=== PATIENT | male | born 1970 | race Caucasian/White ===

== ENCOUNTER → 2018-10-14 | Outpatient (CLI) | payer BC ==
[~2018-10-14] MED LIST: ASPIRIN81 MG PO; GABAPENTIN300 MG PO; LIPITOR20 MG PO; LISINOPRIL10 MG PO; MUCINEX DM ER1 EACH PO; PANTOPRAZOLE SO40 MG PO; SINGULAIR10 MG PO; TIZANIDINE HCL4 M1 PO; XIGDUO XR PO; XOLAIR150 MG SQ; ZYRTEC10 MG PO; [UNRECOGNIZED DRUG - OTHER] SQ
[2018-10-14 11:19] LABS: BASOPHILS # (AUTO) 0.1 (0.0-0.1); BASOPHILS % 0.6 % (0.0-1.0); EOSINOPHILS # (AUTO) 0.1 (0.0-0.4); EOSINOPHILS % 0.9 % (0.0-6.0); HEMOGLOBIN 17.1 g/dL (14.0-18.0); LYMPHOCYTES # (AUTO) 2.9 (1.0-3.2); LYMPHOCYTES % 24.3 % (18.0-39.1); MEAN CORPUSCULAR HEMOGLOBIN 30.3 pg (28-32); MEAN CORPUSCULAR HGB CONC 34.2 g/dL (31-35); MEAN CORPUSCULAR VOLUME 88.5 fL (81-99); MONOCYTES # (AUTO) 0.6 (0.2-0.8); MONOCYTES % 4.9 % (4.4-11.3); NEUTROPHILS # (AUTO) 8.3 (2.1-6.9); PLATELET COUNT 393 x10e3/uL (140-360); RED BLOOD COUNT 5.65 x10e6/uL (4.3-5.7); RED CELL DISTRIBUTION WIDTH 13.5 % (11.7-14.4)
[2018-10-14 11:34] LABS: ALANINE AMINOTRANSFERASE 26 IU/L (0-55); ALBUMIN 4.2 g/dL (3.5-5.0); ALBUMIN/GLOBULIN RATIO 1.1 (0.8-2.0); ALKALINE PHOSPHATASE 68 IU/L (40-150); ANION GAP 14.8 mmol/L (8-16); BLOOD UREA NITROGEN 12 mg/dL (7-26); BUN/CREATININE RATIO 13 (6-25); CARBON DIOXIDE 25 mmol/L (22-29); CHLORIDE 101 mmol/L (98-107); CHOL/HDL RATIO 5.7 (3.9-4.7); CHOLESTEROL 188 MD/DL (0-199); EST GLOMERULAR FILTRATION RATE > 60 ML/MIN (60-); GLUCOSE 85 mg/dL (74-118); HDL CHOLESTEROL 33 MG/DL (40-60); LDL CHOLESTEROL 126 MG/DL (60-130); POTASSIUM 3.8 mmol/L (3.5-5.1); SODIUM 137 mmol/L (136-145); TRIGLYCERIDES 145 MG/DL (0-149)
== END ==
LOC: LAB 10:35
PROVIDERS: ATTEND Family Medicine
DX: E11.65 Type 2 diabetes mellitus with hyperglycemia (principal); E78.2 Mixed hyperlipidemia; M54.5 Low back pain; I10 Essential (primary) hypertension; J30.89 Other allergic rhinitis; K21.0 Gastro-esophageal reflux disease with esophagitis
CPT/HCPCS: 36415; 80053; 80061; 83036; 84152; 85025

== ENCOUNTER → 2018-11-04 | Day surgery (SDC) | payer BC ==
[~2018-11-04] MED LIST changes: +FENTANYL CITRATE/PF 100MCG/2 ML INJ ONE; +METOCLOPRAMIDE HCL 10 MG/2ML VIAL ONE; +MIDAZOLAM HCL 2 MG/2 ML VIAL ONE; +PROPOFOL IV EMULSION 10 MG/ML 20 ML VIAL ONE
--- OUTSIDE RECORDS SUMMARY | 2018-11-04 10:08 | XMS REPORT ---
Author Author Andrzej Zavala Organization [employer] Address Unknown Phone Unavailable Care Team Providers Care Electric Mule Driver Name Role Phone Andrzej Zavala CP Unavailable Allergies No Known Allergies Problems Problem Type Condition Code Onset Dates Condition Status Problem Other specified disorders of Eustachian tube, bilateral H69.83 Active Problem Tinnitus, bilateral H93.13 Active Problem Allergic rhinitis, seasonal J30.2 Active Problem Deviated nasal septum J34.2 Active Problem Allergic rhinitis due to pollen J30.1 Active Problem Nasal Airway Obstruction R0 Active Problem Sinusitis - Chronic J32.8 Active Problem Hearing loss, Perceived- Bilateral H93.293 Active Problem Hypertrophy of nasal turbinates J34.3 Active Medications No Known Medications Results No Known Results Summary Purpose eClinicalWorks Submission
--- OUTSIDE RECORDS SUMMARY | 2018-11-04 10:08 | XMS REPORT | Encounter Summary ---
Author Organization Unknown Address [address] [place] [address] Phone [phone] Reason for Visit Medical Complaint Instructions 1. Diabetes mellitus Discussion Note Follow up with PCP Patient educational handouts: No information available. Plan of Care Reminders Provider Appointments None recorded. Lab None recorded. Referral None recorded. Procedures None recorded. Surgeries None recorded. Imaging None recorded. Medications Name Start Date acetaminophen 300 mg-codeine 30 mg tablet amoxicillin 875 mg-potassium clavulanate 125 mg tablet atorvastatin 20 mg tablet azelastine 137 mcg (0.1 %) nasal spray aerosol azithromycin 250 mg tablet cephalexin 500 mg capsule Clarinex-D 12 HOUR 2.5 mg-120 mg tablet,extended release clarithromycin 500 mg tablet diazepam 5 mg tablet epinephrine 0.3 mg/0.3 mL injection, auto-injector hydrocodone 5 mg-acetaminophen 300 mg tablet losartan 50 mg tablet methylprednisolone 4 mg tablets in a dose pack montelukast 10 mg tablet mupirocin 2 % topical ointment pantoprazole 40 mg tablet,delayed release terbinafine HCl 250 mg tablet tramadol 50 mg tablet Trulicity 1.5 mg/0.5 mL subcutaneous pen injector INJECT 1.5 MG WEEKLY Xigduo XR 5 mg-500 mg tablet,extended release Medications Administered None recorded. Vitals Height Weight BMI Blood Pressure 5 ft 11 in 201 lbs 28 kg/m2 126/70 mm[Hg] Lab Results None recorded. Allergies Code Code System Name Reaction Severity Status Onset 7052 RxNorm Morphine Active Problems None recorded. Procedures None recorded. Vaccine List None recorded. Social History Smoking Status Never Smoker Past Encounters 12/04/2016 Diabetes Mellitus Trina Bhandari PA-C: [address], [place] [address], Ph. History of Present Illness One Time Refill Reported By: Patient HPI: Context: Patient here for medication refill, Why does patient require med refills at [facility]? (double click for free text answer). Quality: What medical problems does patient require refills for? (double click for free text), What medications does patient require refills for? (double click for free text). Duration: How long has patient been taking above medications? > 1 year. Onset/Timing: How long has patient been out of medication? < 1 week Review of Systems:ROS as noted in the HPI Review of Systems Basic Reported By: Patient Physical Exam Adult Basic, Adult Male Complete Reported By: Patient Constitutional: General Appearance: healthy-appearing, well-nourished, well-developed. Level of Distress: NAD. Ambulation: ambulating normally Lungs: Respiratory effort: no dyspnea, no tachypnea, no use of accessory muscles, no intercostal retractions. Auscultation: breath sounds normal, good air movement Cardiovascular: Heart Auscultation: RRR, no murmurs. Pulses including femoral / pedal: normal throughout
--- OUTSIDE RECORDS SUMMARY | 2018-11-04 10:08 | XMS REPORT | Continuity of Care Document ---
Author Author [employer] Organization [employer] Address Unknown Phone Unavailable Care Team Providers Care Field Technical Specialist Name Role Phone [employer] Information Exchange Unavailable Unavailable Problems Problem Status Onset Date Classification Date Reported Comments Source Diabetes mellitus 12/04/2016 Diagnosis 12/04/2016 [facility] Medications Medication Details Route Status Patient Instructions Ordering Provider Order Date Source Acetaminophen 300 MG / Codeine Phosphate 30 MG Oral Tablet acetaminophen 300 mg-codeine 30 mg tablet Active [facility] Amoxicillin 875 MG / Clavulanate 125 MG Oral Tablet amoxicillin 875 mg-potassium clavulanate 125 mg tablet Active [facility] atorvastatin 20 MG Oral Tablet atorvastatin 20 mg tablet Active [facility] Azelastine hydrochloride 0.137 MG/ACTUAT Metered Dose Nasal [place] azelastine 137 mcg (0.1 %) nasal spray aerosol Active [facility] Azithromycin 250 MG Oral Tablet azithromycin 250 mg tablet Active [facility] Cephalexin 500 MG Oral Capsule cephalexin 500 mg capsule Active [facility] 12 HR desloratadine 2.5 MG / Pseudoephedrine sulfate 120 MG Extended Release Oral Tablet [Clarinex-D] Clarinex-D 12 HOUR 2.5 mg-120 mg tablet,extended release Active [facility] Clarithromycin 500 MG Oral Tablet clarithromycin 500 mg tablet Active [facility] Diazepam 5 MG Oral Tablet diazepam 5 mg tablet Active [facility] [id number] 0.3 ML Epinephrine 1 MG/ML Auto-Injector epinephrine 0.3 mg/0.3 mL injection, auto-injector Active [facility] Acetaminophen 300 MG / Hydrocodone Bitartrate 5 MG Oral Tablet hydrocodone 5 mg-acetaminophen 300 mg tablet Active [facility] Losartan Potassium 50 MG Oral Tablet losartan 50 mg tablet Active [facility] methylprednisolone 4 mg tablets in a dose pack methylprednisolone 4 mg tablets in a dose pack Active [facility] montelukast 10 MG Oral Tablet montelukast 10 mg tablet Active [facility] Mupirocin 0.02 MG/MG Topical Ointment mupirocin 2 % topical ointment Active [facility] pantoprazole 40 MG Delayed Release Oral Tablet pantoprazole 40 mg tablet,delayed release Active [facility] terbinafine 250 MG Oral Tablet terbinafine HCl 250 mg tablet Active [facility] tramadol hydrochloride 50 MG Oral Tablet tramadol 50 mg tablet Active [facility] 0.5 ML dulaglutide 3 MG/ML Auto-Injector [Trulicity] Trulicity 1.5 mg/0.5 mL subcutaneous pen injector INJECT 1.5 MG WEEKLY Active [facility] 24 HR dapagliflozin 5 MG / Metformin hydrochloride 500 MG Extended Release Oral Tablet [Xigduo] Xigduo XR 5 mg-500 mg tablet,extended release Active [facility] Allergies, Adverse Reactions, Alerts Substance Category Reaction Severity Reaction type Status Date Reported Comments Source Morphine Allergy to substance 12/04/2016 [facility] Immunizations No Data Provided for This Section Results No Data Provided for This Section Pathology Reports No Data Provided for This Section Diagnostic Reports No Data Provided for This Section Consultation Notes No Data Provided for This Section Discharge Summaries No Data Provided for This Section History and Physicals No Data Provided for This Section Vital Signs Vital Sign Value Date Comments Source Diastolic (mm Hg) 70 12/04/2016 [facility] Height 71 12/04/2016 [facility] Systolic (mm Hg) 126 12/04/2016 [facility] Weight 201 12/04/2016 [facility] Encounters Location Location Details Encounter Type Encounter Number Reason For Visit Attending Provider ADM Date DC Date Status Source Outpatient [id number] RIANNA SAMANIEGO 12/01/2014 Active [facility] - [id number] ChowC: [address], [place] [address], Ph. [id number] Trina Bhandari 12/04/2016 [facility] Procedures No Data Provided for This Section Assessment and Plan No Data Provided for This Section Plan of Care No Data Provided for This Section Social History Social History Date Source Smoking Status Never Smoker 12/04/2016 [facility] Family History No Data Provided for This Section Advance Directives No Data Provided for This Section Functional Status No Data Provided for This Section
--- OUTSIDE RECORDS SUMMARY | 2018-11-04 10:08 | XMS REPORT ---
Author Author Andrzej Zavala Organization [employer] Address Unknown Phone Unavailable Care Team Providers Care Test Developer Name Role Phone Andrzej Zavala CP Unavailable Allergies No Known Allergies Problems Problem Type Condition Code Onset Dates Condition Status Assessment Allergic rhinitis due to pollen J30.1 Active Problem Other specified disorders of Eustachian tube, [...]
--- OUTSIDE RECORDS SUMMARY | 2018-11-04 10:08 | XMS REPORT ---
Author Author Andrzej Zavala [facility] eClinicalWorks Address Unknown Phone Unavailable Care Team Providers Care Molecular Biologist Name Role Phone Andrzej Zavala CP Unavailable Allergies, Adverse Reactions, Alerts Substance Reaction Event Type morphine Info Not Available Drug Allergy Problems Problem Type Condition Code Onset Dates Condition Status Assessment Nasal airway obstruction J34.89 Active Problem Other specified disorders of Eustachian tube, bilateral H69.83 Active Problem Tinnitus, bilateral H93.13 Active Assessment Hypertrophy of nasal turbinates J34.3 Active Assessment Sinusitis - Chronic J32.8 Active Problem Allergic rhinitis, seasonal J30.2 Active Problem Deviated nasal septum J34.2 Active Problem Allergic rhinitis due to pollen J30.1 Active Problem Nasal Airway Obstruction R0 Active Problem Sinusitis - Chronic J32.8 Active Problem Hearing loss, Perceived- Bilateral H93.293 Active Problem Hypertrophy of nasal turbinates J34.3 Active Medications Medication Code System Code Instructions Start Date End Date Status Dosage Dymista [facility] 77090214465 137-50 MCG/ACT Nasally Twice a day Jan 11, 2017 Active 1 puff in each nostril Benadryl [facility] 0 Active not defined Xigduo XR [facility] [address]-46 Active not defined EpiPen 2-Yasmani [facility] 78052684160 0.3 MG/0.3ML Injection Nov 07, 2016 Active as directed Clarinex-D 12 Hour [facility] 26122466769 2.5-120 MG Orally every 12 hrs Nov 07, 2016 Active 1 tablet Tylenol #3 [facility] 24872443809 300-30 MG Orally every 6 hrs as needed May 20, 2017 Active 1-2 tablets Neurontin [facility] 02107810367 100 MG Orally Three times a day Active 1 capsule Protonix [facility] 19837184292 40 MG Orally Once a day Active 1 tablet Clarinex-D 12 Hour [facility] 39208706151 2.5-120 MG Orally every 12 hrs Active 1 tablet Lamisil [facility] [address]-60 Active not defined Augmentin [facility] 66561242605 875-125 MG Orally every 12 hrs May 20, 2017 May 30, 2017 Active 1 tablet Lipitor [facility] 18197290250 20 MG Orally Once a day Active 1 tablet Flonase [facility] 26050810621 50 MCG/ACT Nasally Once a day May 01, 2016 Active 2 sprays in each nostril Trulicity [facility] 08490836785 0.75 MG/0.5ML Subcutaneous Active 0.5 ml Results No Known Results Summary Purpose eClinicalWorks Submission
--- OUTSIDE RECORDS SUMMARY | 2018-11-04 10:08 | XMS REPORT | Clinical Summary ---
Author Author JENNIFER HUYA [facility] InternationalSt[facility] / [facility] Organization [facility] Address Unknown Phone Unavailable Care Team Providers Care Electrician Front Name Role Phone Natty Lucas PCP Allergies Comments Active Allergy Reactions Severity Noted Date "Became violent" Morphine 05/20/2017 Medications End Date Status Medication Sig Dispensed Refills Start Date Active desloratadine-pseudoephed Take 1 tablet 0 rine (CLARINEX-D 12 HOUR) by mouth 2 2.5-120 mg per tablet (two) times daily. Active atorvastatin (LIPITOR) 20 Take 20 mg by 0 MG tablet mouth daily. Active pantoprazole (PROTONIX) Take 40 mg by 0 40 MG tablet mouth daily. Active dapagliflozin-metformin Take by mouth 0 (XIGDUO XR) 5-500 mg per daily. ER tablet Active dulaglutide (TRULICITY) Inject 1.5 mg 0 1.5 mg/0.5 mL PnIj subcutaneousl y every 7 days. Active predniSONE (DELTASONE) 10 Take 10 mg by 0 MG tablet mouth daily. Active diphenhydrAMINE Take 25 mg by 0 (BENADRYL) 25 mg tablet mouth as needed for Sleep. Active Problems Not on file Social History Date Tobacco Use Types Packs/Day Years Used Quit: 05/20/2012 Former Smoker Smokeless Tobacco: Never Used Alcohol Use Drinks/Week oz/Week Comments Yes 2 Cans of 2.4 beer 2 Shots of liquor Sex Assigned at Date Recorded Not on file Industry Job Start Date Occupation Not on file Not on file Not on file Travel End Travel History Travel Start No recent travel history available. Last Filed Vital Signs Not on file Plan of Treatment Not on file Results Not on fileafter 11/03/2017 Insurance Payer Benefit Subscriber ID Type Phone Address Plan / Group [employer] - MGD CARE CIGNA xxxxxxxxxxx HMO/POS HMO/POS/OP EN ACCESS
--- OUTSIDE RECORDS SUMMARY | 2018-11-04 10:09 | XMS REPORT ---
Author Author Andrzej Zavala [facility] eClinicalWorks Address Unknown Phone Unavailable Care Team Providers Care Senior Software Tester Name Role Phone Andrzej Zavala CP Unavailable Allergies, Adverse Reactions, Alerts Substance Reaction Event Type morphine Info Not Available Drug Allergy Problems Problem Type Condition Code Onset Dates Condition Status Problem Tinnitus, bilateral H93.13 Active Problem Sinusitis - Chronic J32.8 Active Problem Other specified disorders of Eustachian tube, bilateral H69.83 Active Assessment Epistaxis R04.0 Active Assessment Sinusitis - Chronic J32.8 Active Problem Allergic rhinitis due to pollen J30.1 Active Problem Allergic rhinitis, seasonal J30.2 Active Problem Epistaxis R04.0 Active Problem Hypertrophy of nasal turbinates J34.3 Active Problem Nasal Airway Obstruction R0 Active Problem Deviated nasal septum J34.2 Active Problem Hearing loss, Perceived- Bilateral H93.293 Active Medications Medication Code System Code Instructions Start Date End Date Status Dosage Clarinex-D 12 Hour [facility] 61073795272 2.5-120 MG Orally every 12 hrs Nov 07, 2016 Active 1 tablet Dymista [facility] 61379281560 137-50 MCG/ACT Nasally Twice a day Jan 11, 2017 Active 1 puff in each nostril Lamisil [facility] [address]-81 Active not defined Protonix [facility] 57867855529 40 MG Orally Once a day Active 1 tablet Neurontin [facility] 60903642291 100 MG Orally Three times a day Active 1 capsule EpiPen 2-Yasmani [facility] 24998786101 0.3 MG/0.3ML Injection Nov 07, 2016 Active as directed Flonase ND 16869962821 50 MCG/ACT Nasally Once a day May 01, 2016 Active 2 sprays in each nostril Xigduo XR [facility] [address]-23 Active not defined Trulicity [facility] 61914339629 0.75 MG/0.5ML Subcutaneous Active 0.5 ml Clarinex-D 12 Hour ND 08421767395 2.5-120 MG Orally every 12 hrs Active 1 tablet Benadryl NDC 0 Active not defined Lipitor [facility] 60214824871 20 MG Orally Once a day Active 1 tablet Results No Known Results Summary Purpose eClinicalWorks Submission
--- OUTSIDE RECORDS SUMMARY | 2018-11-04 10:09 | XMS REPORT ---
Author Author Andrzej Zavala Organization e[employer]Works Address Unknown Phone Unavailable Care Team Providers Care Middle School Counselor Name Role Phone Andrzej Zavala CP Unavailable [...] Instructions Start Date End Date Status Dosage Augmentin [facility] 22750401693 875-125 MG Orally every 12 hrs May 24, 2017 June 03, 2017 Active 1 tablet Tylenol #3 [facility] 01694203594 300-30 MG Orally every 6 hrs as needed May 24, 2017 June 03, 2017 Active 1-2 tablets Results No Known Results Summary Purpose eClinicalWorks Submission
--- OUTSIDE RECORDS SUMMARY | 2018-11-04 10:09 | XMS REPORT | Summary of Care ---
Author Author Miguel Angel AGUIRRE, Sivan Balbuena Unknown Address [facility] Phone Unavailable Care Team Providers Care Animal Nutrition Teacher Name Role Phone BEBA P.A., PETER Unavailable Unavailable RAMAKRISHNA Ariza, MARTHA Unavailable Unavailable SARITA Ariza, MAGNUSED Unavailable Unavailable SARITA Ariza, MIKEA Unavailable Unavailable RAMAKRISHNA COLLIER, MARTHA S Unavailable Unavailable SARITA COLLIER, OLEG CHAMBERLAIN Unavailable Unavailable APURVA COLLIER [place], SB FAIR Unavailable Unavailable BEBA KENNEDY, PETER Unavailable Unavailable Unavailable Unavailable Functional Status Name Dates Details Functional status health issues are not documented Status: Name Dates Details Cognitive status health issues are not documented Status: Problems Name Dates Details Need for influenza vaccination (V04.81, Z23) Status: Active Encounter to establish care (V65.8, Z76.89) Status: Active Elevated WBC count (288.60, D72.829) Status: Active Allergic rhinitis due to allergen (477.9, J30.9) Status: Active 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, 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 Facet joint disease of lumbosacral region (721.3, M47.817) Status: Active Chronic bilateral thoracic back pain (724.1, M54.6) Status: Active Thoracic facet syndrome (724.8, M47.814) Status: Active Abnormal finding on thyroid function test (794.5, R94.6) Status: Active 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, 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 Radicular pain of thoracic region (724.4, M54.14) Status: Active Cervical spondylolysis (756.19, M43.02) Status: Active Cervical radicular pain (723.4, M54.12) Status: Active 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, 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) Status: Active Acute URI (465.9, J06.9) Status: Active Diabetes mellitus type 2, controlled (250.00, E11.9) Status: Active Benign essential hypertension (401.1, I10) Status: Active Hyperlipidemia (272.4, E78.5) Status: Active Heartburn (787.1, R12) Status: Active Sacroiliac joint dysfunction of both sides (724.6, M53.3) Status: Active Lumbar radicular pain (724.4, M54.16) Status: Active Myofacial muscle pain (729.1, M79.1) Status: Active Facet arthritis of lumbosacral region (721.3, M47.817) Status: Active Lumbar spondylosis (721.3, M47.816) Status: Active Cervical facet syndrome (723.8, M47.812) Status: Active Myofascial pain syndrome (729.1, M79.18) Status: Active Medications Name Dates Details Atorvastatin Calcium 40 MG Oral Tablet TAKE 1 TABLET DAILY Quantity: 90 YODER P.A., PETER * Start : 28-Jan-2018 Active Pantoprazole Sodium 40 MG Oral Tablet Delayed Release TAKE 1 TABLET DAILY * Quantity: 90 Refills: 1 YODER P.A., PETER * Start : 02-Jul-2017 Active Xigduo XR 5-500 MG Oral Tablet Extended Release 24 Hour TAKE 1 TABLET BY MOUTH EVERY DAY * Quantity: 90 Refills: 1 MARTHA DURBIN M.D. * Start : 02-Jul-2017 Active Trulicity 1.5 MG/0.5ML Subcutaneous Solution Pen-injector INJECT 1 SYRINGE SUBCUTANEOUSLY WEEKLY * Quantity: 6 Refills: 0 YODER P.A., PETER * Start : 01-Jul-2018 Active Lisinopril 20 MG Oral Tablet TAKE ONE TABLET BY MOUTH ONCE DAILY DIRECTED. DUE FOR [address] EASE SCHEDULE APPOINTMENT FOR OFFICE VISIT. * Quantity: 30 Refills: 0 YODER P.A., PETER * Start : 09-Sep-2017 Active tiZANidine HCl - 4 MG Oral Tablet TAKE 1 TABLET AT BEDTIME. * Quantity: 90 Refills: 2 OLEG STEIN M.D. * Start : 19-Jun-2017 Active Capsaicin 0.025 % External Cream APPLY GENTLY TO AFFECTED AREA 2-4 TIMES DAILY. * Quantity: 1 Refills: 3 SARITA ArizaOLEG * Start : 19-Jun-2017 Active 60 GM Tube Aspirin 81 MG Oral Tablet Delayed Release TAKE 1 TABLET DAILY DIRECTEDNEEDS OFFICE VISIT * Quantity: 30 Refills: 0 RAAMKRISHNA ArizaMARTHA * Start : 28-Jan-2018 Active Singulair 10 MG Oral Tablet * Refills: 0 Active Multivitamins CAPS * Refills: 0 Active Zyrtec TABS * Refills: 0 Active Gabapentin 600 MG Oral Tablet TAKE 1 TABLET BY MOUTH THREE TIMES DAILY * Quantity: 90 Refills: 0 SARITA ArizaMAURO * Start : 10-Jan-2018 Active Allergies and Adverse Reactions Name Dates Details morphine (Allergy) Status: Active Past Medical History Name Dates Details History of high cholesterol (V12.29, Z86.39) Status: Resolved History of type 2 diabetes mellitus (V12.29, Z86.39) Status: Resolved Procedures Procedure Dates Details History of Vasectomy Completed History of Kyphoplasty Completed History of Cervical vertebral fusion Completed History of Uvuloplasty Completed History of Turbinectomy Completed History of Nasal septoplasty Completed Immunization Name Dates Details Fluzone Quadrivalent 0.5 ML Intramuscular Suspension Lot #: [id number] on: 31-Dec-2016 Family History Name Dates Details Family history of hypothyroidism (V18.19, Z83.49) Status: Active Name Dates Details Family history of hypothyroidism (V18.19, Z83.49) Status: Active Name Dates Details Family history of Coronary aneurysm (414.11, I25.41) Status: Active Family history of essential hypertension (V17.49, Z82.49) Status: Active Family history of Lung transplant status, bilateral (V42.6, Z94.2) Status: Active Social History Name Dates Details - Status: Name Dates Details Former smoker Vital Signs Date Test Result Details No Known Vitals to report Results Date Description Value Details Results not documented Plan of Care Name Dates Details Planned Observations Planned Goals not documented Interventions Provided Medication Changes* Lisinopril 20 MG Oral Tablet - Renew Instructions Name Dates Details Instructions not documented Encounters Appointment; JULIA GOMES NP Encounter Diagnosis: Problem not documented On: 31-Dec-2016 14:00 Appointment; MARIANNE RAZO M.D. Encounter Diagnosis: Problem not documented On: 26-Mar-2017 18:15 Appointment; MARTHA DURBIN M.D. Encounter Diagnosis: Problem not documented On: 17-Jun-2017 10:15 Appointment; OLEG STEIN M.D. Encounter Diagnosis: Problem not documented On: 19-Jun-2017 9:30 Appointment; MARTHA DURBIN M.D. Encounter Diagnosis: Problem not documented On: 23-Jul-2017 8:45 Appointment; OLEG STEIN M.D. Encounter Diagnosis: Problem not documented On: 19-Aug-2017 9:30 Appointment; OLEG STEIN M.D. Encounter Diagnosis: Problem not documented On: 22-Oct-2017 15:15 Appointment; OLEG STEIN M.D. Encounter Diagnosis: Problem not documented On: 25-Nov-2017 8:00 Appointment; JARRET CLAROS M.D. Encounter Diagnosis: Problem not documented On: 03-Dec-2017 14:30 Appointment; OLEG STEIN M.D. Encounter Diagnosis: Problem not documented On: 11-Dec-2017 15:00 Appointment; OLEG STEIN M.D. Encounter Diagnosis: Problem not documented On: 31-Dec-2017 9:45 Appointment; MARTHA DURBIN M.D. Encounter Diagnosis: Problem not documented On: 15-Jan-2018 8:00 Appointment; OLEG STEIN M.D. Encounter Diagnosis: Problem not documented On: 16-Jan-2018 10:30 Appointment; OLEG STEIN M.D. Encounter Diagnosis: Problem not documented On: 03-Feb-2018 8:00 Appointment; PETER YODER P.A. Encounter Diagnosis: Problem not documented On: 26-Mar-2018 7:45 Appointment; PETER YODER P.A. Encounter Diagnosis: Problem not documented On: 07-Apr-2018 7:45 Appointment; OLEG STEIN M.D. Encounter Diagnosis: Problem not documented On: 21-Apr-2018 8:30 Appointment; OLEG STEIN M.D. Encounter Diagnosis: Problem not documented On: 20-May-2018 8:15 Appointment; IRA SEARS M.D. Encounter Diagnosis: Problem not documented On: 09-Jul-2018 8:30 Appointment; OLEG STEIN M.D. Encounter Diagnosis: Problem not documented On: 24-Jul-2018 13:15 Appointment; IRA SEARS M.D. Encounter Diagnosis: Problem not documented On: 24-Jul-2018 13:15
--- OUTSIDE RECORDS SUMMARY | 2018-11-04 10:09 | XMS REPORT ---
Author Author Andrzej Zavala Organization [employer] Address Unknown Phone Unavailable Care Team Providers Care Sports Physiotherapist Name Role Phone Andrzej Zavala CP Unavailable Allergies No Known Allergies Problems Problem Type Condition Code Onset Dates Condition Status Problem Other specified disorders of Eustachian tube, bilateral H69.83 Active Problem Nasal Airway Obstruction R0 Active Problem Sinusitis - Chronic J32.8 Active Assessment Allergic rhinitis due to pollen J30.1 Active Problem Tinnitus, bilateral H93.13 Active Problem Epistaxis R04.0 Active Problem Allergic rhinitis due to pollen J30.1 Active Problem Allergic rhinitis J30.9 Active Problem Hearing loss, Perceived- Bilateral H93.293 Active Problem Hypertrophy of nasal turbinates J34.3 Active Problem Allergic rhinitis, seasonal J30.2 Active Problem Deviated nasal septum J34.2 Active Medications No Known Medications Results No Known Results Summary Purpose eClinicalWorks Submission
--- OUTSIDE RECORDS SUMMARY | 2018-11-04 10:09 | XMS REPORT ---
Author Author Andrzej Zavala [facility] e[employer]Works Address Unknown Phone Unavailable Care Team Providers Care Bait Maker Name Role Phone Andrzej Zavala CP Unavailable Allergies, Adverse Reactions, Alerts Substance Reaction Event Type morphine Info Not Available Drug Allergy Problems Problem Type Condition Code Onset Dates Condition Status Assessment Sinusitis - Chronic J32.8 Active Problem Other [...] Instructions Start Date End Date Status Dosage Tylenol #3 [facility] 09511595808 300-30 MG Orally every 6 hrs as needed May 24, 2017 June 03, 2017 Active 1-2 tablets Tylenol #3 NDC 34143864206 300-30 MG Orally every 6 hrs as needed May 20, 2017 Active 1-2 tablets Xigduo XR [facility] [address]-96 Active not defined Lipitor ND 36141558917 20 MG Orally Once a day Active 1 tablet Trulicity [facility] 31069773080 0.75 MG/0.5ML Subcutaneous Active 0.5 ml Augmentin [facility] 83135120735 875-125 MG Orally every 12 hrs May 24, 2017 June 03, 2017 Active 1 tablet Lamisil [facility] [address]-89 Active not defined Neurontin ND 65808102767 100 MG Orally Three times a day Active 1 capsule Flonase ND 21324959816 50 MCG/ACT Nasally Once a day May 01, 2016 Active 2 sprays in each nostril Dymista [facility] 83818946984 137-50 MCG/ACT Nasally Twice a day Jan 11, 2017 Active 1 puff in each nostril Augmentin [facility] 23126669353 875-125 MG Orally every 12 hrs May 20, 2017 May 30, 2017 Active 1 tablet Protonix [facility] 64961956726 40 MG Orally Once a day Active 1 tablet Benadryl [facility] 0 Active not defined EpiPen 2-Yasmani [facility] 87086169439 0.3 MG/0.3ML Injection Nov 07, 2016 Active as directed Clarinex-D 12 Hour [facility] 73732873424 2.5-120 MG Orally every 12 hrs Nov 07, 2016 Active 1 tablet Clarinex-D 12 Hour [facility] 30579119138 2.5-120 MG Orally every 12 hrs Active 1 tablet Results No Known Results Summary Purpose eClinicalWorks Submission
--- OUTSIDE RECORDS SUMMARY | 2018-11-04 10:09 | XMS REPORT ---
Author Author Andrzej Zavala Organization [employer] Address Unknown Phone Unavailable Care Team Providers Care Dairy Worker Name Role Phone Andrzej Zavala CP Unavailable Allergies No Known Allergies Problems Problem Type Condition Code Onset Dates Condition Status Problem Tinnitus, bilateral H93.13 Active Problem Sinusitis - Chronic J32.8 Active Problem Other specified disorders of Eustachian tube, bilateral H69.83 Active Problem Allergic rhinitis due to pollen J30.1 Active Problem Allergic rhinitis, seasonal J30.2 Active Problem Epistaxis R04.0 Active Problem Hypertrophy of nasal turbinates J34.3 Active Problem Nasal Airway Obstruction R0 Active Problem Deviated nasal septum J34.2 Active Problem Hearing loss, Perceived- Bilateral H93.293 Active Medications Medication Code System Code Instructions Start Date End Date Status Dosage Zithromax Z-Yasmani [facility] 82863955686 250 MG Orally Once a day June 14, 2017 June 19, 2017 Active 2 tablets on the first day, then 1 tablet daily for 4 days Results No Known Results Summary Purpose eClinicalWorks Submission
--- OUTSIDE RECORDS SUMMARY | 2018-11-04 10:09 | XMS REPORT ---
Author Author Andrzej Zavala Organization [employer] Address Unknown Phone Unavailable Care Team Providers Care Director Of Knowledge Management Name Role Phone Andrzej Zavala CP Unavailable Allergies No Known Allergies Problems Problem Type Condition Code Onset Dates Condition Status Problem Other specified disorders of Eustachian tube, bilateral H69.83 Active Problem Nasal Airway Obstruction R0 Active Problem Sinusitis - Chronic J32.8 Active Problem Tinnitus, bilateral H93.13 Active Problem [...]
--- OUTSIDE RECORDS SUMMARY | 2018-11-04 10:09 | XMS REPORT ---
Author Author Andrzej Zavala [facility] eClinicalWorks Address Unknown Phone Unavailable Care Team Providers Care Hhas Name Role Phone Andrzej Zavala CP Unavailable Allergies, Adverse Reactions, Alerts Substance Reaction Event Type morphine Info Not Available Drug Allergy Problems Problem Type Condition Code Onset Dates Condition Status Problem Other specified disorders of Eustachian tube, bilateral H69.83 Active Problem Nasal Airway Obstruction R0 Active Problem Sinusitis - Chronic J32.8 Active Problem Epistaxis R04.0 Active Problem Allergic rhinitis due to pollen J30.1 Active Problem Allergic rhinitis J30.9 Active Problem Hearing loss, Perceived- Bilateral H93.293 Active Problem Hypertrophy of nasal turbinates J34.3 Active Problem Allergic rhinitis, seasonal J30.2 Active Problem Deviated nasal septum J34.2 Active Assessment Epistaxis R04.0 Active Assessment Sinusitis - Chronic J32.8 Active Assessment Nasal airway obstruction J34.89 Active Assessment Allergic rhinitis J30.9 Active Problem Tinnitus, bilateral H93.13 Active Medications Medication Code System Code Instructions Start Date End Date Status Dosage Trulicity [facility] 89913653552 0.75 MG/0.5ML Subcutaneous Active 0.5 ml EpiPen 2-Yasmani [facility] 24806883956 0.3 MG/0.3ML Injection Nov 07, 2016 Active as directed Gabapentin NDC 0 Active not defined Clarinex-D 12 Hour [facility] 50160990409 2.5-120 MG Orally every 12 hrs Nov 07, 2016 Active 1 tablet Clarinex-D 12 Hour [facility] 85906198510 2.5-120 MG Orally every 12 hrs Active 1 tablet Flonase [facility] 37344852163 50 MCG/ACT Nasally Once a day May 01, 2016 Active 2 sprays in each nostril Lisinopril [facility] [address]-40 Active not defined Neurontin [facility] 41717013625 100 MG Orally Three times a day Active 1 capsule Benadryl ND 0 Active not defined Lamisil [facility] [address]-28 Active not defined Dymista [facility] 39238559739 137-50 MCG/ACT Nasally Twice a day Jan 11, 2017 Active 1 puff in each nostril Protonix [facility] 95384340156 40 MG Orally Once a day Active 1 tablet Lipitor [facility] 69842965776 20 MG Orally Once a day Active 1 tablet Xigduo XR [facility] [address]-50 Active not defined Results No Known Results Summary Purpose eClinicalWorks Submission
--- OUTSIDE RECORDS SUMMARY | 2018-11-04 10:09 | XMS REPORT ---
Author Author Andrzej Zavala [facility] eClinicalWorks Address Unknown Phone Unavailable Care Team Providers Care Phosphatic Fertilizer Supervisor Name Role Phone Andrzej Zavala CP Unavailable [...] Problem Deviated nasal septum J34.2 Active Assessment Allergic rhinitis J30.9 Active Assessment Epistaxis R04.0 Active Assessment Sinusitis - Chronic J32.8 Active Problem Tinnitus, bilateral H93.13 Active Medications Medication Code System Code Instructions Start Date End Date Status Dosage Lisinopril [facility] [address]-46 Active not defined Neurontin [facility] 28591492354 100 MG Orally Three times a day Active 1 capsule Flonase [facility] 70010796487 50 MCG/ACT Nasally Once a day May 01, 2016 Active 2 sprays in each nostril Lamisil [facility] [address]-89 Active not defined Gabapentin NDC 0 Active not defined Xigduo XR [facility] [address]-89 Active not defined Trulicity [facility] 86141978163 0.75 MG/0.5ML Subcutaneous Active 0.5 ml Clarinex-D 12 Hour ND 85715536131 2.5-120 MG Orally every 12 hrs Active 1 tablet Protonix ND 05803600465 40 MG Orally Once a day Active 1 tablet Lipitor ND 76871510648 20 MG Orally Once a day Active 1 tablet Benadryl NDC 0 Active not defined EpiPen 2-Yasmani [facility] 85911223913 0.3 MG/0.3ML Injection Nov 07, 2016 Active as directed Clarinex-D 12 Hour [facility] 24728708411 2.5-120 MG Orally every 12 hrs Nov 07, 2016 Active 1 tablet Dymista [facility] 02221274291 137-50 MCG/ACT Nasally Twice a day Jan 11, 2017 Active 1 puff in each nostril Results No Known Results Summary Purpose eClinicalWorks Submission
--- OUTSIDE RECORDS SUMMARY | 2018-11-04 10:09 | XMS REPORT ---
Author Author Andrzej Zavala [facility] eClinicalWorks Address Unknown Phone Unavailable Care Team Providers Care Bakery Machine Mechanic Name Role Phone Andrzej Zavala CP Unavailable [...] Instructions Start Date End Date Status Dosage Benadryl ND 0 Active not defined Tizanidine HCl [facility] [address]-00 Active not defined Xigduo XR [facility] [address]-24 Active not defined Flonase [facility] 65539626937 50 MCG/ACT Nasally Once a day May 01, 2016 Active 2 sprays in each nostril Protonix [facility] 27453419407 40 MG Orally Once a day Active 1 tablet Neurontin ND 87038998888 100 MG Orally Three times a day Active 1 capsule Clarinex-D 12 Hour [facility] 46619762112 2.5-120 MG Orally every 12 hrs Active 1 tablet Lamisil [facility] [address]-38 Active not defined Dymista [facility] 68387360401 137-50 MCG/ACT Nasally Twice a day Jan 11, 2017 Active 1 puff in each nostril Lipitor ND 36828352699 20 MG Orally Once a day Active 1 tablet Clarinex-D 12 Hour [facility] 14827460906 2.5-120 MG Orally every 12 hrs Nov 07, 2016 Active 1 tablet Trulicity [facility] 31447532081 0.75 MG/0.5ML Subcutaneous Active 0.5 ml Gabapentin [facility] 0 Active not defined Lisinopril [facility] [address]-51 Active not defined EpiPen 2-Yasmani [facility] 66425432304 0.3 MG/0.3ML Injection Nov 07, 2016 Active as directed Results No Known Results Summary Purpose eClinicalWorks Submission
--- OUTSIDE RECORDS SUMMARY | 2018-11-04 10:09 | XMS REPORT ---
Author Author Andrzej Zavala Organization [employer] Address Unknown Phone Unavailable Care Team Providers Care Rivet Tapping Machine Operator Name Role Phone Andrzej Zavala CP Unavailable [...]
--- OUTSIDE RECORDS SUMMARY | 2018-11-04 10:09 | XMS REPORT ---
[facility] Address Unknown Phone Unavailable Care Team Providers Care Fitness Leader Name Role Phone Renetta WINKLER Unavailable Unavailable Payers Payer Name Policy Type Policy Number Effective Date Expiration Date Problems This patient has no known problems. Allergies, Adverse Reactions, Alerts Allergy Name Allergy Type Status Severity Reaction(s) Onset Date Inactive Date Treating Clinician Comments morphine DA Active SV 2017-06-01 00:00:00 Medications This patient has no known medications. Results Test Description Test Time Test Comments Text Results Atomic Results Result Comments - MRI L-SPINE W/O CONT 2018-05-01 16:58:00 FAX: Darnell Mtz MD [phone] [place]: St: [facility] FAX: Natty Krishnamurthy [phone] Name: NILSON FLYNN [facility] : 1970 Age/S: 47/M [address] [place] [address] Unit #: [id number] Loc: [place] [address] Phys: Darnell Mtz MD Acct: [id number] Dis Date: Status: REG CLI PHONE #: [phone] Exam Date: 05/01/2018 1631 FAX #: [phone] Reason: LUMBAR SPONDYLOSIS, RADICULAR PAIN. EXAMS: CPT CODE: [id number] MRI L-SPINE W/O CONT 60548 MRI LUMBAR SPINE WITHOUT CONTRAST INDICATION: LUMBAR SPONDYLOSIS, RADICULAR PAIN.. TECHNIQUE: Unenhanced MRI of the lumbar spine was performed with axial and sagittal, T2 and T1 weighted sequences. COMPARISONS: MRI lumbar spine 01/15/2017 FINDINGS: There is a chronic mild height loss stable anterior wedge compression deformity of the T12 vertebral body with indwelling vertebroplasty cement. There is no acute spinal fracture. There is suggestion of a chronic nondisplaced unilateral right L5 pars defect which is incompletely imaged on the sagittal images. The spinal cord and cauda equina signal ap pear normal. Discs/spinal Canal/neural foramina: T12-L1: There is a mild circumferential disc bulge with no spinal canal or neural foraminal stenosis. L1-L2: There is a 2 mm degenerative retrolisthesis of L1 on L2. There is mild disc height loss but no significant disc bulge. There is no spinal canal or neural foraminal stenosis. L2-L3: There is a 2 mm degenerative retrolisthesis of L2 on L3. There is a mild left posterior broad-based disc bulge with mild disc height loss. There is stable mild left neural foraminal stenosis. The right neural foramen and spinal canal are widely patent. L3-L4: There is a mild broad base posterior disc bulge with preserved disc height. There is minimal impression upon the ventral thecal sac but no spinal canal stenosis. There is stable mild bilateral neural foraminal stenosis. There is moderate primary osteoarthritic facet hypertrophy. L4-L5: There is a 2 mm degenerative anterolisthesis of L4 on L5. There is a broad base posterior disc bulge with mild disc height loss. There is moderate primary osteoarthritic facet hypertrophy. There is no spinal canal stenosis. There is stable mild left neural foraminal stenosis. The right neural foramen is widely patent. L5-S1: There is moderate primary osteoarthritic facet hypertrophy, left greater than right. There is a minimal broad base posterior disc bulge with no spinal canal stenosis. There is increased moderate left neural foraminal stenosis and no right neural foraminal stenosis. PAGE 1 Signed Report (CONTINUED) FAX: Darnell Mtz MD [phone] [place]: St: REG FAX: Natty Krishnamurthy [phone] Name: NILSON FLYNN [facility] : 1970 Age/S: 47/M [address] [place] [address] Blvd Unit #: [id number] Loc: [place] [address] Phys: Darnell Mtz MD Acct: [id number] Dis Date: Status: REG CLI PHONE #: [phone] Exam Date: 05/01/2018 1631 FAX #: [phone] Reason: LUMBAR SPONDYLOSIS, RADICULAR PAIN. EXAMS: CPT CODE: [id number] MRI L-SPINE W/O CONT 89467 <Continued> IMPRESSION: 1. There is no spinal canal stenosis at any lumbar level. 2. There is mild stable left neural foraminal stenosis at L2-L3, stable bilateral mild neural foraminal stenosis at L3-L4, stable mild left neural foraminal stenosis at L4-L5 and increased moderate left neural foraminal stenosis at L5-S1. at 1278 Reported and signed by: Sawyer Bird D.O. CC: Darnell Mtz MD; Natty Lucas Technologist: RT Anjelica(Leilani)(CT) Trnscrd Date/Time/By: 05/01/2018 (3709) : By: [email or web address] Orig Print D/T: S: 05/01/2018 (6200) PAGE 2 Signed Report TISSUE EXAM 2017-05-30 11:39:00 Surgical Pathology Report Case: [id number] Authorizing Provider: Andrzej Winkler MD Collected: 05/28/2017 1216 Ord ering Location: [facility] PERI[facility] Received: 05/28/2017 1346 SERVICES Pathologist: Gomez Sánchez MD Specimens: A) - Sinus, Left, SINUS CONTENT B) - Sinus, Right, SINUS CONTENT A. SINUS CONTENTS, LEFT,REMOVAL: - SINONASAL MUCOSA WITH CHRONIC INFLAMMATION AND EDEMA - SCANT UNDERLYING BONE, UNREMARKABLEB. SINUS CONTENTS, RIGHT,REMOVAL: - SINONASAL MUCOSA WITH CHRONIC INFLAMMATION - UNDERLYING BONE, UNREMARKABLE Signing Pathologist Direct Phone Line: [phone] signed by Gomez Sánchez MD on 05/30/2017 at 11:39 [id number], [id number] obstruction A. Left sinus contents. B. Right sinus contentsSpecimen is received in two containers of saline both labeled with the patient's information.Specimen A: Labeled "left sinus content" consists of mutl fragments of barlow-pink soft tissue with cartilage and bone measuring 1.5 x 1 x 0.3 cm in aggregate, submitted entirely in A1 for decalcification.Specimen B: Labeled "right sinus content" consists of a barlow-pink turbinate measuring 2.6 x 0.8 x 0.3 cm. The specimen is sectioned and submitted entirely in B1 for decalcification. CG/ew Performed. POCT-GLUCOSE METER 2017-05-28 11:12:00 POC-GLUCOSE METER ([facility]) (test aagw=0897) 91 mg/dL 70-110 TESTED AT [facility] [address] [facility] [address]
--- NOTE | 2018-11-04 18:06 | Operative Report ---
DATE OF PROCEDURE: 11/04/2018 SURGEON: Bandar Mims MD PROCEDURES: EGD with biopsies. INDICATIONS FOR EGD: Heartburn and indigestion. MEDICATIONS: The patient was done under MAC, please see anesthesiologist's note. PROCEDURE IN DETAIL: With the patient in left lateral decubitus position, the flexible fiberoptic Olympus gastroscope was introduced into the esophagus under direct visualization without any difficulty. A minute nodule was noted in mid esophagus and that was partially excised with the cold biopsy forceps. Minute tongues of velvety red mucosa were noted to extend proximally from the GE junction and biopsies were obtained to rule out Perez's. The scope was then advanced with ease into the stomach traversing a small hiatal hernia. Mucosa overlying the antrum and the body revealed some diffuse erythema, low-grade edema, and biopsies were obtained and sent to stain for H. pylori. The pylorus was of normal contour and shape, it was intubated with ease and the scope was advanced all the way to the second portion of the duodenum. Biopsies were obtained from the second portion and duodenal bulb to rule out sprue. The scope was then withdrawn back into the stomach and retroflexed mucosa overlying the fundus and the cardia grossly appeared to be within normal limits. The scope was then straightened out, it was subsequently withdrawn, and the patient tolerated the procedure well. IMPRESSION: 1. Minute nodule, mid esophagus, biopsied. 2. Rule out Perez esophagus. 3. Hiatal hernia. 4. Gastritis, biopsied, biopsies sent to stain for Helicobacter pylori. 5. Rule out sprue. PLAN: Follow up histology. Continue Protonix 40 mg one p.o. q.a.m. before meals. Bandar Mims MD [facility]/MODL /[id number] cc: John Pfeiffer MD
== END | disposition home or self-care (01) ==
LOC: OR 10:04
PROVIDERS: ATTEND Internal Medicine Gastroenterology
DX: K29.70 Gastritis, unspecified, without bleeding (principal); K21.0 Gastro-esophageal reflux disease with esophagitis; K44.9 Diaphragmatic hernia without obstruction or gangrene; K22.8 Other specified diseases of esophagus; E11.9 Type 2 diabetes mellitus without complications; I10 Essential (primary) hypertension; J44.9 Chronic obstructive pulmonary disease, unspecified; E78.5 Hyperlipidemia, unspecified; Z88.6 Allergy status to analgesic agent; Z01.810 Encounter for preprocedural cardiovascular examination; Z79.84 Long term (current) use of oral hypoglycemic drugs; Z79.82 Long term (current) use of aspirin; Z68.30 Body mass index [BMI] 30.0-30.9, adult; Z87.01 Personal history of pneumonia (recurrent); Z87.891 Personal history of nicotine dependence; Z80.0 Family history of malignant neoplasm of digestive organs
CPT/HCPCS: 36415; 43239; 82948; 93005; J2250; J2704; J2765; J3010